=== PATIENT | female | born 1950 | race Caucasian/White ===

== ENCOUNTER 2019-04-21 18:06 | Emergency (ER) | payer MEDICARE, SELFPAY ==
[2019-04-21 18:19] VITALS: BP 111/57; PULSE 70; RESP 17; TEMP 36.1; O2SAT 98
--- NOTE | 2019-04-21 18:24 | DI.RAD.S_ITS ---
PROCEDURE: XR FINGER LT MIN 2V INDICATIONS: deformity TECHNIQUE: AP hand, 2 views of the left 5th digit acquired. COMPARISON: None. FINDINGS: Bones: There is dorsal dislocation of the 5th proximal interphalangeal joint. There is a suspected impaction fracture at the volar base of the 5th middle phalanx. Soft tissues: No suspicious soft tissue calcifications. IMPRESSION: 1. Dorsal dislocation of the 5th PIP with suspected impaction fracture at the base of the 5th middle phalanx. Dictated by: Pro Mcneil M.D. on 04/21/2019 at 18:41 Approved by: Pro Mcneil M.D. on 04/21/2019 at 18:42
--- NOTE | 2019-04-21 19:18 | ED_ITS ---
HPI - Extremity Injury (Upper) <BASSEM Manuel - Last Filed: 04/21/19 22:53> General Chief Complaint: Extremity Injury, Upper Stated Complaint: thinks broke 5th digit left hand Time Seen by Provider: 04/21/19 18:45 Source: patient Mode of arrival: ambulatory Limitations: no limitations History of Present Illness HPI narrative: 68-year-old female presents emergency department today co mplaining of left 5th finger pain. States she was bouncing a basketball and trying to make a basket when she jammed her finger. Complains of dislocation of her finger, and a 3/10 aching pain that is worse with movement of the finger. Denies numbness, tingling, fevers, hand pain, or other trauma to her extremity. Related Data Allergies Allergy/AdvReac Type Severity Reaction Status Date / Time No Known Drug Allergies Allergy Verified 04/21/19 18:19 Review of Systems <BASSEM Manuel - Last Filed: 04/21/19 22:53> Review of Systems REVIEW OF SYSTEMS: GENERAL: Denies fever or chills. HENT: No head trauma. EYES: No double vision or vision loss. CARDIOVASCULAR: No chest pain or syncope. RESPIRATORY: No shortness of breath or cough. GASTROINTESTINAL: No nausea, vomiting, diarrhea, or constipation. GENITOURINARY: No flank pain or dysuria. MUSCULOSKELETAL: Complains of finger pain, see HPI. INTEGUMENTARY: No rash, lesions, or pruritus. NEURO: No numbness, tingling. PSYCH: No behavior or mood changes. PFSH <BASSEM Manuel - Last Filed: 04/21/19 22:53> Medical History No significant medical problems (Acute) Social History Smoking Status: Never smoker Social History Smoking Status: Never smoker Exam <BASSEM Manuel - Last Filed: 04/21/19 22:53> Initial Vital Signs Initial Vital Signs: Vital Signs Temperature 97.0 F L 04/21/19 18:19 Pulse Rate 70 04/21/19 18:19 Respiratory Rate 17 04/21/19 18:19 Blood Pressure 111/57 L 04/21/19 18:19 Pulse Oximetry 98 04/21/19 18:19 PHYSICAL EXAMINATION: GENERAL: Well groomed, alert, and cooperative. Answers questions promptly and appropriately. Vital signs noted. HENT: Normocephalic, atraumatic. EYES: Symmetrical, sclera white, no periorbital swelling. CARDIOVASCULAR: S1 and S2 sounds normal. Regular rate and rhythm, no murmurs, clicks, or bruits. No pedal edema. RESPIRATORY: Normal respiratory rate, trachea midline, airway patent. No stridor, nasal flaring or accessory muscle use. Lungs are clear in all pleitez. MUSCULOSKELETAL: Normal gait and coordination. Equal tone and mass bilaterally. Left 5th phalanges was laterally dislocated at the pip joint, slight proximal swelling was present. After relocation, joints were aligned and patient was to bend her finger at the PIP joint without increased pain. CMS remained intact. Cap refill less than 2 seconds. Patient reports decreased pain after relocation. EXTREMITIES: CMS intact. SKIN: Warm, dry, soft, appropriate color for ethnicity. No lesions, rashes, or wounds. NEURO: Alert and Oriented X 3. No sensory deficits. PSYCH: Appropriate affect and mood. <Radha Rocha DO - Last Filed: 04/22/19 01:28> Initial Vital Signs Initial Vital Signs: Vital Signs Temperature 97.0 F L 04/21/19 18:19 Pulse Rate 70 04/21/19 18:19 Respiratory Rate 17 04/21/19 18:19 Blood Pressure 111/57 L 04/21/19 18:19 Pulse Oximetry 98 04/21/19 18:19 Procedures <BASSEM Manuel - Last Filed: 04/21/19 22:53> Orthopedic Joint Reduction Left 5th finger: Time Out Performed: Yes Side: left Joint Reduction Location: finger Analgesia: nerve block Local Anesthesia: lidocaine 1% and with bicarb Amount of anesthesic used (mL): 5 Technique used: traction/counter-traction and direct manipulation Post-reduction neuro exam: intact Post-reduction vascular: intact Post Reduction X-Ray Obtained: Yes Post Reduction X-Ray Results: reduced Splint Applied: Yes Patient Tolerated Procedure: Well Course <BASSEM Manuel - Last Filed: 04/21/19 22:53> Orders Ordered: ED Orders 04/21/19 18:24 XR finger LT min 2V Stat 04/21/19 19:28 XR finger LT min 2V Stat Reevaluation(s) Reevaluation #1: After nerve block and relocation, patient states her pain is well controlled. Consultations Consultation #1: Patient staffed with Dr. Rocha. Vital Signs - 8 hr 04/21/19 18:19 04/21/19 19:54 Temperature 97.0 F L Pulse Rate 70 63 Respiratory Rate 17 16 Blood Pressure 111/57 L Blood Pressure [Right Arm] 104/34 L Pulse Oximetry 98 97 <Radha Rocha DO - Last Filed: 04/22/19 01:28> Orders Ordered: ED Orders 04/21/19 18:24 XR finger LT min 2V Stat 04/21/19 19:28 XR finger LT min 2V Stat Vital Signs - 8 hr 04/21/19 18:19 04/21/19 19:54 Temperature 97.0 F L Pulse Rate 70 63 Respiratory Rate 17 16 Blood Pressure 111/57 L Blood Pressure [Right Arm] 104/34 L Pulse Oximetry 98 97 MDM - Extremity Injury (Upper) <BASSEM Manuel - Last Filed: 04/21/19 22:53> Medical Records Attestation: I reviewed the patient's medical records. Lab Data Attestation: I reviewed the patient's lab results. Imaging Data Prereduction finger XR Left: Radiologist's impression: [address] [address] XRay Report Signed Patient: Diane Huerta TMR#: [id number] : 2Acct:[id number] Age/Sex: 68 / FDate of Service: 04/21/19 Loc: ED Accession Number: [id number] Procedure: XR finger LT min 2V Ordering Provider: Radha Rocha D.O. PROCEDURE: XR FINGER LT MIN 2V INDICATIONS: deformity TECHNIQUE: AP hand, 2 views of the left 5th digit acquired. COMPARISON: None. FINDINGS: Bones: There is dorsal dislocation of the 5th proximal interphalangeal joint. There is a suspected impaction fracture at the volar base of the 5th middle phalanx. Soft tissues: No suspicious soft tissue calcifications. IMPRESSION: 1. Dorsal dislocation of the 5th PIP with suspected impaction fracture at the base of the 5th middle phalanx. Dictated by: Pro Mcneil M.D. on 04/21/2019 at 18:41 Approved by: Pro Mcneil M.D. on 04/21/2019 at 18:42 Post-reduction film : Radiologist's impression: [address] [address] XRay Report Signed Patient: Diane Huerta TMR#: [id number] : 2Acct:[id number] Age/Sex: 68 / FDate of Service: 04/21/19 Loc: ED Accession Number: [id number] Procedure: XR finger LT min 2V Ordering Provider: Jessica Rooney PROCEDURE: XR FINGER LT MIN 2V INDICATIONS: post reduction film TECHNIQUE: 2 views of the 5th digit acquired. COMPARISON: [facility], , XR FINGER LT MIN 2V, 04/21/2019, 18:28. FINDINGS: Bones: There is interval reduction of the 5th proximal interphalangeal joint. There is bony irregularity along the volar aspect of the base of the 5th middle phalanx compatible with a small impaction fracture. Soft tissues: There is a suspected small fracture fragment volar to the 5th PIP joint. IMPRESSION: 1. Interval reduction of the 5th proximal phalangeal joint with a small volar impaction fracture at the base of the 5th middle phalanx. Dictated by: Pro Mcneil M.D. on 04/21/2019 at 20:15 Approved by: Pro Mcneil M.D. on 04/21/2019 at 20:17 MDM Narrative Medical decision making narrative: Finger dislocation requiring simple reduction as well as small fracture requiring splinting. Little concern for compromised neurovascular status due to exam. Patient referred, strict return precautions given. Discharge Plan Departure Patient Disposition: Home Clinical Impression: Dislocated finger Qualifiers: Encounter type: initial encounter Qualified Code(s): S63.259A - Unspecified dislocation of unspecified finger, initial encounter Discharge Date/Time: 04/21/19 20:28 Interventions: ED Discharge Assessment Last Done: 04/21/19 20:27 Instructions: DI for Finger Dislocation Activity Restrictions/Additional Instructions: Thank you for entrusting me with your care today. As discussed, there is a small fracture in the middle of the finger. Additionally, your finger was dislocated but has been relocated. Please follow-up with an orthopedic or your primary care provider in the next week. Please leave the splint in place until follow- up. Return to the emergency department if he develops chest pain, shortness of breath, or discoloration of the limbs. <Radha Rocha DO - Last Filed: 04/22/19 01:28> Cosign ED Attending Maninder Attestation: I was immediately available in the department for consultation. Documentation has been reviewed. I agree with assessment and plan.
--- NOTE | 2019-04-21 19:28 | DI.RAD.S_ITS ---
PROCEDURE: XR FINGER LT MIN 2V INDICATIONS: post reduction film TECHNIQUE: 2 views of the 5th digit acquired. COMPARISON: [facility], CR, XR FINGER LT MIN 2V, 04/21/2019, 18:28. FINDINGS: Bones: There is interval reduction of the 5th proximal interphalangeal joint. There is bony irregularity along the volar aspect of the base of the 5th middle phalanx compatible with a small impaction fracture. Soft tissues: There is a suspected small fracture fragment volar to the 5th PIP joint. IMPRESSION: 1. Interval reduction of the 5th proximal phalangeal joint with a small volar impaction fracture at the base of the 5th middle phalanx. Dictated by: Pro Mcneil M.D. on 04/21/2019 at 20:15 Approved by: Pro Mcneil M.D. on 04/21/2019 at 20:17
[2019-04-21 19:54] VITALS: BP 104/34; PULSE 63; RESP 16; O2SAT 97
== END 2019-04-21 20:28 | disposition home or self-care (01) ==
PROVIDERS: Emergency Provider Nurse Practitioner
DX: S63.257A Unspecified dislocation of left little finger, initial encounter (principal); Y93.67 Activity, basketball
CPT/HCPCS: 26770; 29130; 73140; 99282; 99283